=== PATIENT | male | born 1990 | race African-American/Black ===

== ENCOUNTER 2021-11-19 17:01 | Emergency (ER) | payer OTHER ==
[~2021-11-19] VITALS: Ht 177.8 cm; Wt 90.0 kg
[2021-11-19 17:10] VITALS: BP 166/107
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
== END 2021-11-19 18:17 | disposition home or self-care (01) ==
LOC: ER 17:01
DX: S09.90XA Unspecified injury of head, initial encounter (principal); Y08.89XA Assault by other specified means, initial encounter; Y93.89 Activity, other specified; Y92.89 Other specified places as the place of occurrence of the external cause; Y99.8 Other external cause status
CPT/HCPCS: 70450; 72125; 99284